=== PATIENT | male | born 1970 | race Caucasian/White ===

== ENCOUNTER → 2018-12-16 16:38 | Outpatient (CLI) | payer OTHER, SELFPAY ==
--- NOTE | 2018-12-16 | DI.RAD.S_ITS ---
PROCEDURE: XR CHEST 2V INDICATIONS: CHEST PAIN TECHNIQUE: 2 views of the chest were acquired. COMPARISON: [facility], , CHEST 2 VIEW, 01/12/2009, 15:07. FINDINGS: Surgical changes and devices: None. Lungs and pleura: Lungs are clear. No pleural effusions or pneumothorax. Mediastinum: Mediastinal contours are normal. Heart size is normal. Bones and chest wall: No suspicious bony abnormalities. Soft tissues appear unremarkable. IMPRESSION: No acute cardiopulmonary disease. Dictated by: Kaitlin Leslie M.D. on 12/17/2018 at 11:37 Approved by: Kaitlin Leslie M.D. on 12/17/2018 at 11:37
[2018-12-16 17:18] LABS: Add Manual Diff / Slide Review NO; Basophils Absolute Auto 100 /uL (0-100); Basophils Percent Auto 1.3 % (0-2); Eosinophils Absolute Auto 200 /uL (0-450); Eosinophils Percent Auto 2.4 % (2-4); Hematocrit 45.1 % (41-53); Hemoglobin 14.9 g/dL (13.5-17.5); Lymphocytes Absolute Auto 2800 /uL (1100-4500); Lymphocytes Percent Auto 32.7 % (25-40); Mean Corpuscular Volume 81.6 fL (80-100); Monocytes Absolute Auto 700 /uL (0-900); Neutrophils Absolute Auto 4700 /uL (1500-7000); Neutrophils Percent Auto 55.6 % (50-75); Platelet Count 273 X10^3/uL (150-400); Red Blood Cell Count 5.53 X10^6/uL (4.5-5.9); Red Cell Distribution Width 12.6 % (11.6-14.8); White Blood Cell Count 8.5 X10^3/uL (4.5-11.0)
[2018-12-16 18:49] LABS: Alanine Aminotransferase 79 IU/L (21-72); Albumin 4.9 g/dL (3.5-5.0); Albumin Globulin Ratio 1.4 (1.0-2.8); Alkaline Phosphatase 65 U/L (38-126); Aspartate Aminotransferase 46 IU/L (17-59); BUN Creatinine Ratio 23.3 (6-22); Bilirubin Total 1.1 mg/dL (0.2-1.3); Blood Urea Nitrogen 21 mg/dL (9-20); Carbon Dioxide 27 mmol/L (22-32); Chloride 99 mmol/L (98-107); Cholesterol 179 mg/dL (140-199); Estimated Glomerular Filt Rate > 60.0 mL/min (>60); Globulin 3.6 g/dL (1.7-4.1); Glucose 74 mg/dL (70-100); HDL Cholesterol 71 mg/dL (40-60); HEMOLYSIS < 15 (0-50); LDL Cholesterol Calculated 79 mg/dL (<100); Potassium 4.4 mmol/L (3.4-5.1); Sodium 138 mmol/L (137-145); Total Protein 8.5 g/dL (6.3-8.2); Triglycerides 145 mg/dL (35-150)
[2018-12-16 19:18] LABS: Thyroid Stimulating Hormone 2.53 uIU/mL (0.47-4.68)
[2018-12-16 19:20] LABS: Prostate Specific Antigen Scrn 0.788 ng/mL (0.1-4.0)
== END ==
PROVIDERS: Family Provider Family Medicine; PCP Family Medicine; Visit Provider Family Medicine
DX: R07.9 Chest pain, unspecified (principal); I10 Essential (primary) hypertension; Z12.5 Encounter for screening for malignant neoplasm of prostate
CPT/HCPCS: 36415; 71046; 80053; 80061; 84443; 85025; G0103

== ENCOUNTER → 2018-12-31 14:36 | Outpatient (CLI) | payer OTHER, SELFPAY ==
--- NOTE | 2018-12-31 16:37 | PM.TREADMILL ---
Cardiac Stress Test Report Referral & Results Date Patient Seen: 12/31/18 Requesting provider: Andrew Rudolph Indication: Chest pain Rest ECG: Unremarkable Procedure Note: Today following both written and verbal informed consent, the patient was exercised according to a standard Fabio protocol. The patient exercised for a total of 10 min 1 sec achieving a maximum heart rate of 170. Patient's maximum systolic blood pressure was 190. This was an estimated 12.[address]-T segment changes Normal heart rate and blood pressure response to exercise Functional aerobic impairment rated 0 on the sedentary scale Rare PVCs identified Impression: No evidence of ischemia. Average exercise capacity Please note: Actual ECG tracings can be found in the PACS system.
== END ==
PROVIDERS: PCP Family Medicine; Visit Provider Family Medicine
DX: R07.9 Chest pain, unspecified (principal)
CPT/HCPCS: 93016; 93017; 93018